=== PATIENT | female | born 1970 | race Caucasian/White ===

== ENCOUNTER 2022-05-03 09:12 | Outpatient (CLI) | payer OTHER, SELFPAY ==
[2022-05-03 12:29] LABS: Albumin* 4.4 g/dL (3.3-5.0); Chloride* 105 mmol/L (96-114); Potassium* 4.5 mmol/L (3.6-5.1); Sodium* 139 mmol/L (135-149)
[2022-05-03 12:31] LABS: Bilirubin Total* 0.6 mg/dL (0.1-1.5); Carbon Dioxide* 25 mmol/L (20-32); Cholesterol* 250 mg/dL (90-199); Creatinine* 0.8 mg/dL (0.5-1.5); Estimated Glomerular Filt Rate 88 ml/min; Total Protein* 7.4 g/dL (6.0-8.3)
[2022-05-03 12:32] LABS: Alanine Aminotransferase* 32 U/L (4-35); Alkaline Phosphatase* 81 U/L (40-150); Aspartate Amino Transferase* 27 U/L (12-35); Blood Urea Nitrogen* 12 mg/dL (7-30); Calcium* 9.1 mg/dL (8.4-10.6); Glucose* 93 mg/dL (60-115); HDL Cholesterol* 66 mg/dL (>=50); LDL Cholesterol Calculated 153 mg/dL (<100); Triglycerides* 156 mg/dL (40-149)
[2022-05-03 12:56] LABS: Vitamin D 25 Hydroxy* 22 ng/mL (30-80)
== END 2022-05-03 09:13 | disposition home or self-care (01) ==
PROVIDERS: PCP Physician Assistant Medical; Visit Provider Physician Assistant Medical
DX: E03.9 Hypothyroidism, unspecified (principal); E78.5 Hyperlipidemia, unspecified; R79.89 Other specified abnormal findings of blood chemistry
CPT/HCPCS: 80053; 80061; 82306; 84443

== ENCOUNTER 2022-07-05 13:03 | Outpatient (CLI) | payer OTHER, SELFPAY ==
--- NOTE | 2022-07-05 13:20 | CRLHL7_ITS ---
For Patients: As a result of the Century Cures Act, medical imaging exams and procedure reports are released immediately into your electronic medical record. You may view this report before your referring provider. If you have questions, please contact your health care provider. BILATERAL SCREENING MAMMOGRAM WITH COMPUTER-AIDED DETECTION TECHNIQUE: CC and MLO views were obtained. These mammographic images have been obtained using full-field digital technique. These mammographic images were interpreted with the benefit of computer-aided detection. COMPARISON FILM: 07/12/19, 11/21/16, 06/14/14. FINDINGS: There are scattered areas of fibroglandular density IMPRESSION: There is no radiographic evidence for malignancy. ASSESSMENT: BI-RADS Category 1: Negative RECOMMENDATION: Routine screening mammogram in 1 year. A lay language report of this examination will be provided to the patient. Constantino Alexander M.D. Diagnostic Radiologist [email or web address] MERA/Dictated by: Constantino Alexander MD @ 07/08/2022 11:46:00 AM (Electronically Signed)
== END 2022-07-05 13:04 | disposition home or self-care (01) ==
LOC: MAMMO 13:05
PROVIDERS: PCP Physician Assistant Medical; Visit Provider Physician Assistant Medical
DX: Z12.31 Encounter for screening mammogram for malignant neoplasm of breast (principal)
CPT/HCPCS: 77067

== ENCOUNTER 2022-10-28 07:24 | Outpatient (CLI) | payer OTHER, SELFPAY | END 2022-10-28 07:25 | disposition home or self-care (01) | PROVIDERS: PCP Physician Assistant Medical; Visit Provider Physician Assistant Medical | DX: E03.9 Hypothyroidism, unspecified (principal) | CPT/HCPCS: 84443 ==

== ENCOUNTER 2023-12-17 14:26 | Outpatient (CLI) | payer OTHER, SELFPAY | END 2023-12-17 14:27 | disposition home or self-care (01) | LOC: NFLDREF 12-18 03:18 | PROVIDERS: PCP Physician Assistant Medical; Referring Provider Physician Assistant Medical; Visit Provider Physician Assistant Medical | DX: E78.5 Hyperlipidemia, unspecified (principal); D50.9 Iron deficiency anemia, unspecified; R79.89 Other specified abnormal findings of blood chemistry; E03.9 Hypothyroidism, unspecified; F32.A Depression, unspecified; K21.9 Gastro-esophageal reflux disease without esophagitis; I10 Essential (primary) hypertension; E78.2 Mixed hyperlipidemia; F41.8 Other specified anxiety disorders; B02.9 Zoster without complications | CPT/HCPCS: 80053; 80061; 82306; 82607; 82728; 84443 ==

== ENCOUNTER 2024-02-18 09:33 | Outpatient (CLI) | payer OTHER, SELFPAY ==
--- NOTE | 2024-02-18 10:15 | CRLHL7_ITS ---
For Patients: As a result of the Century Cures Act, medical imaging exams and procedure reports are released immediately into your electronic medical record. You may view this report before your referring provider. If you have questions, please contact your health care provider. BILATERAL SCREENING MAMMOGRAM WITH COMPUTER-AIDED DETECTION AND TOMOSYNTHESIS TECHNIQUE: CC and MLO views were obtained. These mammographic images have been obtained using full-field digital technique. These mammographic images were interpreted with the benefit of computer-aided detection. Breast Tomosynthesis was used in this interpretation. COMPARISON FILM: 07/05/22, 07/12/19, 11/21/16. FINDINGS: There are scattered areas of fibroglandular density IMPRESSION: There is no radiographic evidence for malignancy. ASSESSMENT: BI-RADS Category 1: Negative RECOMMENDATION: Routine screening mammogram in 1 year. A lay language report of this examination will be provided to the patient. Constantino Alexander M.D. Diagnostic Radiologist [email or web address] MERA/Dictated by: Constantino Alexander MD @ 02/18/2024 12:10:00 PM (Electronically Signed)
== END 2024-02-18 09:34 | disposition home or self-care (01) ==
LOC: MAMMO 09:33
PROVIDERS: PCP Physician Assistant Medical; Visit Provider Physician Assistant Medical
DX: Z12.31 Encounter for screening mammogram for malignant neoplasm of breast (principal)
CPT/HCPCS: 77063; 77067

== ENCOUNTER 2024-07-29 08:25 | Outpatient (CLI) | payer OTHER, SELFPAY ==
--- NOTE | 2024-07-29 10:05 | P.ANES_ITS ---
Anesthesia Charges Start Date/Time Anesthesia Start Date: 07/29/24 Anesthesia Start Time: 09:25 Stop Date/Time Anesthesia Stop Date: 07/29/24 Anesthesia Stop Time: 10:01 Coding CPT Codes CPT Codes: ALEXA DUMONT INTST NDSC NOS - 30138 ([id number]) P2 - PATIENT W/MILD SYST DISEASE, QX - UKE DRIVER SVC W/ MD MED DIRECTION, QK - CREDENTIALING ANALYST 2-4 CNCRNT ALEXA PROC
--- NOTE | 2024-07-29 10:05 | W.ANESCHARGE ---
Anesthesia Charges Start Date/Time Anesthesia Start Date: 07/29/24 Anesthesia Start Time: 09:25 Stop Date/Time Anesthesia Stop Date: 07/29/24 Anesthesia Stop Time: 10:01 Coding CPT Codes CPT Codes: ALEXA DUMONT INTST NDSC NOS - [id number] ([id number]) P2 - PATIENT W/MILD SYST DISEASE, QX - REBAR FABRICATOR SVC W/ MD MED DIRECTION, QK - CHAR BELT OPERATOR 2-4 CNCRNT ALEXA PROC
--- NOTE | 2024-07-29 10:19 | P.ANES_ITS ---
Anesthesia Charges Start Date/Time Anesthesia Start Date: 07/29/24 Anesthesia Start Time: 09:25 Stop Date/Time Anesthesia Stop Date: 07/29/24 Anesthesia Stop Time: 10:01 Coding CPT Codes CPT Codes: ALEXA LWR INTST NDSC NOS - [id number] ([id number]) QK - GRINDING MACHINE OPERATOR AUTOMATIC 2-4 CNCRNT ALEXA PROC, QX - UPFITTER SVC W/ MD MED DIRECTION, P2 - PATIENT W/MILD SYST DISEASE
--- NOTE | 2024-07-29 10:19 | W.ANESCHARGE ---
Anesthesia Charges Start Date/Time Anesthesia Start Date: 07/29/24 Anesthesia Start Time: 09:25 Stop Date/Time Anesthesia Stop Date: 07/29/24 Anesthesia Stop Time: 10:01 Coding CPT Codes CPT Codes: ALEXA LWR INTST NDSC NOS - [id number] ([id number]) QK - EVENING OR NIGHT NURSE SUPERVISOR 2-4 CNCRNT ALEXA PROC, QX - CATALYST RECOVERY OPERATOR SVC W/ MD MED DIRECTION, P2 - PATIENT W/MILD SYST DISEASE
== END 2024-07-29 08:26 | disposition home or self-care (01) ==
PROVIDERS: PCP Physician Assistant Medical; Visit Provider Surgery
DX: Z12.11 Encounter for screening for malignant neoplasm of colon (principal); D12.2 Benign neoplasm of ascending colon; D12.5 Benign neoplasm of sigmoid colon; Z86.0100 Personal history of colon polyps, unspecified
CPT/HCPCS: 00811; 45385; 88305; J2704